=== PATIENT | male | born 1980 | race Asian ===

== ENCOUNTER 2018-05-17 23:15 | Emergency (ER) | payer BC ==
[~2018-05-17] VITALS: Ht 170.2 cm; Wt 79.5 kg
[2018-05-18 01:35] VITALS: BP 128/79
== END 2018-05-18 01:30 | disposition home or self-care (01) ==
LOC: ED 23:15
DX: S61.012A Laceration without foreign body of left thumb without damage to nail, initial encounter (principal); W26.9XXA Contact with unspecified sharp object(s), initial encounter; Y93.G1 Activity, food preparation and clean up; Y92.89 Other specified places as the place of occurrence of the external cause; Y99.8 Other external cause status
CPT/HCPCS: 90714; J2001